=== PATIENT | female | born 1965 | race Caucasian/White ===

== ENCOUNTER 2018-06-26 11:58 | Day surgery (SDC) | payer OTHER ==
[2018-06-26] MEDS ORDERED: LACTATED RINGER'S 1,000 ML IV* (12:00)
[2018-06-26] MEDS ORDERED: CEFAZOLIN 2 GM/50 ML (PMX) 50 ML IVPB (12:00)
[2018-06-26] MEDS ORDERED: MIDAZOLAM 1 MG/ML 2 ML INJ (14:42)
[2018-06-26] MEDS ORDERED: PROPOFOL 20 ML (14:42)
[2018-06-26] MEDS ORDERED: ONDANSETRON 4 MG INJ (14:42)
[2018-06-26] MEDS ORDERED: METOCLOPRAMIDE 10 MG INJ (14:42)
[2018-06-26] MEDS ORDERED: CEFAZOLIN 1 GM INJ (14:56)
[2018-06-26] MEDS ORDERED: KETOROLAC 30 MG INJ (14:56)
[2018-06-26] MEDS ORDERED: FENTAnyl 50 MCG/ML VIAL (14:58)
[2018-06-26] MEDS ORDERED: ONDANSETRON 4 MG INJ IV (15:00)
[2018-06-26] MEDS ORDERED: HYDROmorphONE 1 MG/5 ML IV SYRINGE IV ×2 (15:00)
[2018-06-26] MEDS ORDERED: OXYCODONE/ACETAMINOPHEN (5/325) TAB PO ×2 (15:00)
[2018-06-26] MEDS: BUPIVACAINE 0.5% (SDV) 30 ML INJ (15:06)
[2018-06-26] MEDS: HYDROmorphONE 1 MG/5 ML IV SYRINGE IV (16:30)
== END 2018-06-26 17:30 | disposition home or self-care (01) ==
LOC: SDS 11:58
DX: M65.842 Other synovitis and tenosynovitis, left hand (principal); E11.9 Type 2 diabetes mellitus without complications
CPT/HCPCS: 26160; 82962; 84703; 88307